=== PATIENT | male | born 1970 | race Caucasian/White ===

== ENCOUNTER 2018-09-29 11:19 | Emergency (ER) | payer SELFPAY ==
[2018-09-29] MEDS: ALBUTEROL SULFATE 2.5 MG/0.5 ML INH NEB SOLN NEB (11:48)
[2018-09-29] MEDS: IBUPROFEN 600 MG TAB PO (11:49)
[2018-09-29] MEDS: ACETAMINOPHEN 325 MG TAB PO (11:49)
[2018-09-29 11:53] LABS: HEMOGLOBIN 13.8 g/dl (13.5-17.5); MEAN CORPUSCULAR HEMOGLOBIN 28.8 pg (27.0-33.0); MEAN CORPUSCULAR HGB CONC 34.5 g/dl (32.0-36.5); MEAN CORPUSCULAR VOLUME 83.3 fl (80.0-96.0); PLATELET COUNT, AUTOMATED 144 10^3/uL (150-450); RED CELL DISTRIBUTION WIDTH 13.4 % (11.5-14.5)
[2018-09-29 12:20] LABS: ANION GAP 8 MEQ/L (8-16); BLOOD UREA NITROGEN 12 MG/DL (7-18); CALCIUM LEVEL 8.1 MG/DL (8.5-10.1); CARBON DIOXIDE LEVEL 24 MEQ/L (21-32); CHLORIDE LEVEL 101 MEQ/L (98-107); CREATININE FOR GFR 0.88 MG/DL (0.70-1.30); GLOMERULAR FILTRATION RATE > 60.0 (>60); GLUCOSE, FASTING 115 MG/DL (70-100); POTASSIUM SERUM 3.9 MEQ/L (3.5-5.1); SODIUM LEVEL 133 MEQ/L (136-145)
[2018-09-29 12:23] LABS: LACTIC ACID SEPSIS PROTOCOL 1.5 MMOL/L (0.4-2.0)
[2018-09-29 12:30] LABS: ADD MANUAL DIFFER YES; DIFF SLIDE NUMBER 143; POSITIVE MORPH POS FLAG
[2018-09-29 12:36] LABS: INFLUENZA A AMPLIFICATION NEGATIVE (NEGATIVE); INFLUENZA B AMPLIFICATION NEGATIVE (NEGATIVE)
[2018-09-29 12:43] LABS: D-DIMER QUANT 2688.51 ng/ml (<500)
[2018-09-29] MEDS ORDERED: ISOVUE-370 76% 100ML VIAL (Q9967) As Ordered (12:54)
[2018-09-29 12:56] LABS: ATYPICAL LYMPH 6 % (0-5); BANDS 2 % (< 11); BASOPHILS 2 % (0-4); LYMPHOCYTES 21 % (16-52); MONOCYTES 16 % (0-8); NEUTROPHILS 53 % (35-75); PLATELET ESTIMATE DECREASED (NORMAL)
[2018-09-29 12:57] LABS: ANISOCYTOSIS 1+
[2018-09-29] MEDS: methylPREDNISolone INJ 125 MG/2 ML VIAL (J2930) IV (12:58)
[2018-09-29 13:45] LABS: CK-MB VALUE MASS < 1.0 NG/ML (<3.6); CPK CREATINE PHOSPHOKINASE 20 U/L (39-308); TROPONIN I < 0.02 NG/ML (< 0.10)
== END 2018-09-29 14:44 | disposition home or self-care (01) ==
LOC: M ED 11:19
DX: J06.9 Acute upper respiratory infection, unspecified (principal); R50.9 Fever, unspecified; R00.0 Tachycardia, unspecified; I35.9 Nonrheumatic aortic valve disorder, unspecified
CPT/HCPCS: Q9967